=== PATIENT | female | born 1980 | race Caucasian/White ===

== ENCOUNTER 2017-08-02 21:53 | Inpatient (IN) ==
[2017-08-02] MEDS ORDERED: LEVOFLOXACIN INJ 750 MG in PREMIX 1 EACH IV STA (23:42)
[2017-08-03] MEDS ORDERED: ALBUTEROL 2.5 MG/3 ML NEB RESP TX STA (00:02)
[2017-08-03 00:09] LABS: Basophils % 0.5 % (0.0-0.8); Hematocrit 42.4 VOL% (35.7-47.0); Hemoglobin 14.7 GM/DL (12.0-16.0); Lymphocytes # 1.6 10*3/uL (1.4-4.0); Mean Corpuscular HGB Conc 34.7 GM/DL (32-36); Mean Corpuscular Hemoglobin 30 PG (27-34); Mean Platelet Volume 10.1 FL (9.6-12.0); Monocytes # 0.2 10*3/uL (0.11-0.8); Monocytes % 4.2 % (1.7-12.7); Neutrophils # 2.1 10*3/uL (1.4-7.4); Neutrophils % 54.3 % (38.7-73.9); Platelet Count 214 T/CUMM (130-400); Red Blood Count 4.93 MC/CUMM (3.8-5.5); Red Cell Distribution Width 12.7 % (9.3-17.3); White Blood Count 3.9 T/CUMM (4-12)
[2017-08-03] MEDS ORDERED: ALBUTEROL 2.5 MG/3 ML NEB RESP TX ONE (00:11)
[2017-08-03 00:28] LABS: Osmolality,Calculated 268.1 MOS/KG (273-304); Potassium 3.2 MMOL/L (3.5-5.1)
[2017-08-03] MEDS ORDERED: ACETAMINOPHEN 500 MG TABLET PO STA (00:34)
[2017-08-03] MEDS ORDERED: LEVOFLOXACIN INJ 150 ML IV ONE (00:35)
[2017-08-03] MEDS ORDERED: ACETAMINOPHEN 500 MG TABLET ONE (00:36)
[2017-08-03 00:39] LABS: Lactic Acid 0.9 MMOL/L (0.4-2.0)
[2017-08-03] MEDS ORDERED: POTASSIUM CHLORIDE 20 MEQ TABLET PO STA (01:01)
[2017-08-03 01:06] LABS: Band Neutrophils 18 % (0-10); Lymphocytes 32 % (20-55); Segmented Neutrophils 44 % (50-85); Total Cells Counted 100
[2017-08-03] MEDS ORDERED: SODIUM CHLORIDE 0.9% 2,000 ML IV STA (01:11)
[2017-08-03] MEDS: ALBUTEROL/IPRATROPIUM 3 ML NEB RESP TX SCH ×6 (02:18→20:20)
[2017-08-03] MEDS: SODIUM CHLORIDE 0.9% 1,000 ML IV SCH ×4 (03:02→13:29)
[2017-08-03] MEDS: POTASSIUM CHLORIDE 20 MEQ TABLET PO SCH ×3 (08:41→18:00)
[2017-08-03] MEDS: NICOTINE 21 MG/24 HR PATCH TRANSDERM SCH (08:41)
[2017-08-03] MEDS: ENOXAPARIN 40 MG/0.4 ML SYRINGE SUBCUT SCH (08:41)
[2017-08-03 08:53] LABS: Osmolality,Calculated 273.7 MOS/KG (273-304)
[2017-08-03] MEDS ORDERED: LOPERAMIDE 2 MG CAPSULE PO PRN (11:27)
[2017-08-03] MEDS: LEVOFLOXACIN INJ 750 MG in PREMIX 1 EACH IV SCH (20:56)
[2017-08-04] MEDS: ALBUTEROL/IPRATROPIUM 3 ML NEB RESP TX SCH ×7 (00:25→23:36)
[2017-08-04] MEDS: SODIUM CHLORIDE 0.9% 1,000 ML IV SCH ×2 (04:44→04:45)
[2017-08-04] MEDS: ACETAMINOPHEN 325 MG TABLET PO PRN ×2 (05:05→11:13)
[2017-08-04 06:46] LABS: Basophils % 0.5 % (0.0-0.8); Hematocrit 37.4 VOL% (35.7-47.0); Hemoglobin 12.7 GM/DL (12.0-16.0); Immature Granulocytes % 0.2 %; Immature Granulocytes Absolute 0.01 #; Lymphocytes # 2.4 10*3/uL (1.4-4.0); Lymphocytes % 55.9 % (21.3-54.2); Mean Corpuscular Hemoglobin 30 PG (27-34); Mean Corpuscular Volume 86.8 FL (87-102); Mean Platelet Volume 10.2 FL (9.6-12.0); Monocytes # 0.2 10*3/uL (0.11-0.8); Monocytes % 5.4 % (1.7-12.7); Neutrophils # 1.6 10*3/uL (1.4-7.4); Platelet Count 184 T/CUMM (130-400); Red Blood Count 4.31 MC/CUMM (3.8-5.5); Red Cell Distribution Width 13.1 % (9.3-17.3); White Blood Count 4.3 T/CUMM (4-12)
[2017-08-04 07:15] LABS: Calcium 7.1 MG/DL (8.5-10.1); Magnesium 1.9 MG/DL (1.8-2.4); Osmolality,Calculated 277.3 MOS/KG (273-304); Potassium 3.4 MMOL/L (3.5-5.1)
[2017-08-04 07:17] LABS: Band Neutrophils 1 % (0-10); Giant Platelets Few; Hypochromasia 1+; Lymphocytes 45 % (20-55); Platelet Estimate Normal; Segmented Neutrophils 46 % (50-85); Total Cells Counted 100
[2017-08-04] MEDS: ENOXAPARIN 40 MG/0.4 ML SYRINGE SUBCUT SCH (08:51)
[2017-08-04] MEDS: NICOTINE 21 MG/24 HR PATCH TRANSDERM SCH (08:52)
[2017-08-04] MEDS: SODIUM CHLOR 0.9% KCL 40 MEQ 40 MEQ/1,000 ML BAG IV SCH ×2 (11:09→21:36)
[2017-08-04] MEDS ORDERED: ONDANSETRON 4 MG/2 ML VIAL IV PRN (19:10)
[2017-08-04] MEDS: LEVOFLOXACIN INJ 750 MG in PREMIX 1 EACH IV SCH (19:59)
[2017-08-05] MEDS: ALBUTEROL/IPRATROPIUM 3 ML NEB RESP TX SCH ×4 (03:02→19:57)
[2017-08-05 06:52] LABS: Calcium 7.5 MG/DL (8.5-10.1); Osmolality,Calculated 276.3 MOS/KG (273-304)
[2017-08-05] MEDS: SODIUM CHLOR 0.9% KCL 40 MEQ 40 MEQ/1,000 ML BAG IV SCH ×2 (09:01→21:16)
[2017-08-05] MEDS: ENOXAPARIN 40 MG/0.4 ML SYRINGE SUBCUT SCH (09:02)
[2017-08-05] MEDS: NICOTINE 21 MG/24 HR PATCH TRANSDERM SCH (09:02)
[2017-08-05] MEDS: LEVOFLOXACIN INJ 750 MG in PREMIX 1 EACH IV SCH (21:17)
[2017-08-06] MEDS: ALBUTEROL/IPRATROPIUM 3 ML NEB RESP TX SCH ×4 (01:08→12:07)
[2017-08-06] MEDS ORDERED: MELATONIN 3 MG TABLET PO PRN (01:43)
[2017-08-06] MEDS: SODIUM CHLOR 0.9% KCL 40 MEQ 40 MEQ/1,000 ML BAG IV SCH ×2 (02:12→15:09)
[2017-08-06] MEDS ORDERED: ALPRAZolam 0.5 MG TABLET PO ONE (03:56)
[2017-08-06] MEDS: NICOTINE 21 MG/24 HR PATCH TRANSDERM SCH (08:31)
[2017-08-06] MEDS: ENOXAPARIN 40 MG/0.4 ML SYRINGE SUBCUT SCH (08:32)
[2017-08-06 17:24] VITALS: BP 101/54
== END 2017-08-06 17:47 | disposition home or self-care (01) | DRG 871 ==
LOC: N.ED 21:53 → SUATTDRO 08-03 00:56 → N.EDINP 08-03 00:56 → N.5E 08-03 01:34
PROVIDERS: ADMIT Internal Medicine; ATTEND Internal Medicine